=== PATIENT | male | born 1965 | race Caucasian/White ===

== ENCOUNTER → 2023-01-25 | Outpatient (CLI) | payer OTHER ==
--- NOTE | 2023-01-25 16:40 | Diagnostic Imaging Report ---
INDICATION: Right elbow pain. TIME OF EXAM: 3:31 PM. TECHNIQUE: Three views of the right elbow were obtained. FINDINGS: There is significant soft tissue swelling about the posterior elbow. There is a well-corticated osseous density in the soft tissues of the posterior elbow. Alignment appears normal. No fractures are seen. There is no joint effusion. IMPRESSION: Posterior soft tissue swelling. No acute bony abnormality is detected. Dictated by: Dictated on workstation # [id number]
== END ==
LOC: ORTHO 15:16
PROVIDERS: ATTEND Orthopaedic Surgery
DX: M70.21 Olecranon bursitis, right elbow (principal)
CPT/HCPCS: 20610; 73080